=== PATIENT | female | born 1945 | race Hispanic/Latino ===

== ENCOUNTER 2017-05-17 15:09 | Emergency (ER) | payer OTHER, MEDICARE ==
[~2017-05-17 15:09] MED LIST: APIX5TAB PO; CALC600T12 PO; CITA-107 PO; DIPH25CA PO; IPRA4AER IH; LISI-613 PO; NYST15CR TP; SIMV40TA59 PO; SITA25TA5 PO
[2017-05-17 16:12] LABS: BASOPHILS % (AUTO) 0.5 % (0.0-5.0); EOSINOPHILS % (AUTO) 1.2 % (0.0-8.0); HEMATOCRIT 33.7 % (36-48); LYMPHOCYTES % (AUTO) 13.5 % (21.0-51.0); MEAN CORPUSCULAR HEMOGLOBIN 27.9 pg (27.0-33.0); MEAN CORPUSCULAR VOLUME 84.6 fL (79-99); NEUTROPHILS % (AUTO) 77.8 % (40.0-77.0); PLATELET COUNT (AUTO) 271 K/uL (130-400); RED BLOOD CELL COUNT(AUTO) 3.99 MIL/uL (4.00-5.50); RED CELL DISTRIBUTION WIDTH 13.9 % (11.0-15.5); WHITE BLOOD COUNT (AUTO) 11.4 K/uL (4.8-10.8)
[2017-05-17 16:19] LABS: CREATININE 2.1 mg/dL (0.5-1.5); POTASSIUM 4.9 mmol/L (3.5-5.1)
[2017-05-17 16:20] LABS: INR 1.02 (0.85-1.15); PARTIAL THROMBOPLASTIN TIME 22.7 SEC (26.3-35.5); PROTHROMBIN TIME 10.7 SEC (9.6-11.6)
[2017-05-17 16:33] LABS: ALBUMIN 3.5 g/dL (3.5-5.0); BILIRUBIN,TOTAL 0.3 mg/dL (0.2-1.0); CRP QUANTITATIVE 1.6 mg/L (0.00-9.0); TOTAL PROTEIN, SERUM 7.3 g/dL (6.0-8.3)
[2017-05-17 16:42] LABS: B-TYPE NATRIURETIC PEPTIDE 12 pg/mL (0-100)
[2017-05-17 17:34] LABS: ERYTHROCYTE SEDIMENTATION RATE 33 MM/HR (0-15)
[2017-05-17] MEDS ORDERED: CLINDAMYCIN 600 MG/D5% WATER 50 ML IV ONE (18:09)
== END 2017-05-17 19:38 | disposition home or self-care (01) ==
LOC: EDH 15:09
DX: L03.116 Cellulitis of left lower limb (principal); R60.0 Localized edema; I10 Essential (primary) hypertension; E78.5 Hyperlipidemia, unspecified; Z88.1 Allergy status to other antibiotic agents; Z86.718 Personal history of other venous thrombosis and embolism; Z90.710 Acquired absence of both cervix and uterus; Z98.890 Other specified postprocedural states
CPT/HCPCS: 36415; 71045; 80053; 82550; 82553; 83880; 84484; 85025; 85378; 85610; 85651; 85730; 86141; 93005; 93971; 96365; 99285; J3490

== ENCOUNTER → 2020-03-03 | Outpatient (CLI) | payer OTHER, MEDICARE ==
[~2020-03-03] MED LIST changes: -CALC600T12 PO; +CALC600T15 PO
== END | disposition home or self-care (01) ==
LOC: RAH 14:55
PROVIDERS: ATTEND Family Medicine
DX: I87.2 Venous insufficiency (chronic) (peripheral) (principal); Z86.718 Personal history of other venous thrombosis and embolism
CPT/HCPCS: 93971

== ENCOUNTER → 2022-04-07 | Outpatient (CLI) | payer OTHER, MEDICARE ==
[~2022-04-07] MED LIST changes: +CALC-1125 PO; -CALC600T15 PO; -LISI-613 PO; +LISI20TA24 PO; -NYST15CR TP; +NYST15CR39 TP; +REGADENOSON 0.4 MG/5 ML PF SYG IVP SCH
== END | disposition home or self-care (01) ==
LOC: SHCH 09:18
PROVIDERS: ATTEND Internal Medicine Cardiovascular Disease
DX: I20.9 Angina pectoris, unspecified (principal); R07.9 Chest pain, unspecified
CPT/HCPCS: 78452; 96374; 93017; J2785; A9500 ×2

== ENCOUNTER → 2022-05-17 | Outpatient (CLI) | payer OTHER, MEDICARE ==
[~2022-05-17] MED LIST changes: -REGADENOSON 0.4 MG/5 ML PF SYG IVP SCH
== END | disposition home or self-care (01) ==
LOC: SHCH 08:22
PROVIDERS: ATTEND Internal Medicine Cardiovascular Disease
DX: I87.2 Venous insufficiency (chronic) (peripheral) (principal); I73.9 Peripheral vascular disease, unspecified
CPT/HCPCS: 93925; 93970

== ENCOUNTER → 2022-05-23 | Outpatient (CLI) | payer OTHER, MEDICARE | END | disposition home or self-care (01) | LOC: SHCH 15:35 | PROVIDERS: ATTEND Internal Medicine Cardiovascular Disease | DX: R06.9 Unspecified abnormalities of breathing (principal); R07.9 Chest pain, unspecified | CPT/HCPCS: 93306 ==

== ENCOUNTER → 2022-07-03 | Outpatient (CLI) | payer OTHER, MEDICARE | END | disposition home or self-care (01) | LOC: SHCH 07:50 | PROVIDERS: ATTEND Internal Medicine Cardiovascular Disease | DX: I87.2 Venous insufficiency (chronic) (peripheral) (principal); I82.812 Embolism and thrombosis of superficial veins of left lower extremity; M71.22 Synovial cyst of popliteal space [Baker], left knee; Z98.890 Other specified postprocedural states | CPT/HCPCS: 93971 ==

== ENCOUNTER → 2022-08-14 | Outpatient (CLI) | payer OTHER, MEDICARE ==
[2022-08-14 09:32] LABS: PROTHROMBIN TIME 10.9 SEC (9.6-11.6)
[2022-08-14 09:33] LABS: PARTIAL THROMBOPLASTIN TIME 25.9 SEC (26.3-35.5)
== END ==
LOC: RAH 08:02
PROVIDERS: ATTEND Internal Medicine
DX: E04.2 Nontoxic multinodular goiter (principal); F41.9 Anxiety disorder, unspecified; F32.A Depression, unspecified
CPT/HCPCS: 10005; 36415; 76942; 85610; 85730; 88173; 88305

== ENCOUNTER → 2024-03-06 | Outpatient (CLI) | payer OTHER, MEDICARE | END | disposition home or self-care (01) | LOC: SHCH 10:12 | PROVIDERS: ATTEND Internal Medicine Cardiovascular Disease | DX: I20.9 Angina pectoris, unspecified (principal) | CPT/HCPCS: 93306 ==

== ENCOUNTER → 2024-04-17 | Outpatient (CLI) | payer OTHER, MEDICARE | END | disposition home or self-care (01) | LOC: SHCH 09:42 | PROVIDERS: ATTEND Internal Medicine Cardiovascular Disease | DX: I87.2 Venous insufficiency (chronic) (peripheral) (principal); I87.1 Compression of vein | CPT/HCPCS: 93970 ==

== ENCOUNTER → 2024-04-21 | Outpatient (CLI) | payer OTHER, MEDICARE ==
[2024-04-21] MEDS: REGADENOSON 0.4 MG/5 ML PF SYG IVP ONE (11:14)
--- NOTE | 2024-04-22 13:54 | HMCSR ---
APPROVED REPORT Height: 5 ft 6in Weight: 212 lbs TEST INDICATIONS ANGINA PECTORIS The imaging protocol used to acquire images was Rest Tc-99m/stress Tc-99m 1 day Consent: The procedure was explained and understood by the patient. Informerd consent was witnessed Alessio Gutiérrez RN First, low dose rest was performed then high dose stress. RESTING DATA: The resting ekg shows: NSR Rest SPECT myocardial perfusion imaging was performed in supine position 73 minutes following the int ravenous injection of 10.9 mCi of Tc-99 Sestamibi. Time of rest injection: 09:05: Date: 04/21/2024 Time of rest imagin:13: Date: 04/21/2024 PHARMACOLOGIC STRESS: Pharmacologic stress test was performed by injecting regadenoson 0.4 mg IV push followed by the intra venous injection of 31.5 mCi of Tc-99 Sestamibi. Time of stress injection: 10:55: Date: 04/21/2024 Time of stress imagin:58: Date: 04/21/2024 Heart Rate at time of stress injection: 75 bpm. Gated Stress SPECT was performed 63 minutes after stress injection. The images were gated to evaluate regional wall motion and calculate left ventricular ejection fracti on. STRESS DETAILS Reason for Termination: Infusion complete Stress Symptoms: Dyspnea Max HR Achieved: 78 bpm % of APMHR Achieved: 54 Max Blood Pressure: 136/72 mmHg Stress ECG: NSR Study quality was good. Lung uptake was Normal. Artifact: breast and diaphragmatic artifact LEFT VENTRICLE Size: The left ventricular size is normal. Systolic Function:The left ventricular systolic function is normal. The left ventricular ejection fraction was calculated to be 71%.TID = . LV PERFUSION There is decreased radiotracer uptake of moderate size and moderate degree involving the lateral wall more present on the stress images compared to the rest images consistent reversible ischemia Conclusion Abnormal myocardial perfusion scan for moderate sized and moderate degree lateral wall ischemia Preserved ejection fraction and wall motion Moderate risk scan Clinical correlation recommended
== END | disposition home or self-care (01) ==
LOC: SHCH 08:42
PROVIDERS: ATTEND Internal Medicine Cardiovascular Disease
DX: I99.8 Other disorder of circulatory system (principal); I20.9 Angina pectoris, unspecified
CPT/HCPCS: 78452; 93017; J2785; A9500 ×2